=== PATIENT | male | born 1990 | race Caucasian/White ===

== ENCOUNTER 2018-05-26 22:44 | Emergency (ER) | payer SELFPAY ==
--- NOTE | 2018-05-26 22:54 | ED ---
Psych HPI - General Source: police Mode of arrival: ambulatory <Whit Lima - Last Filed: 05/27/18 05:49> <Onesimo Rico - Last Filed: 05/27/18 10:08> - General Chief Complaint: Psychiatric Symptoms Stated Complaint: Mental Health, Petition Time Seen by Provider: 05/26/18 22:54 - History of Present Illness Initial Comments: Wali is a 27-year-old male is brought to the ED today by police for evaluation of suicidal thoughts. Police were contacted by the patient's mother after he had made some suicidal statements to her. Police found the patient and his home where he lives alone, patient was intoxicated. Patient admits to drinking alcohol this evening, he states that he lives alone, he admits that he has both knives and guns available to him in his house, he denies any psychiatric history. He admits to being depressed, he admits to making suicidal statements to his family members earlier in the night, he denies any suicidal thoughts or intention to me. Patient is agitated stating that he is being held against his will. (Whit Lima) - Related Data Home Medications Medication Instructions Recorded Confirmed [id number] 2 tab PO Q6HR PRN 05/26/18 05/26/18 [Excedrin] Allergies Allergy/AdvReac Type Severity Reaction Status Date / Time cat dander Allergy Anaphylaxis Verified 05/26/18 23:29 Review of Systems ROS Other: All systems not noted in ROS Statement are negative. <Whit Lima - Last Filed: 05/27/18 05:49> ROS Other: All systems not noted in ROS Statement are negative. <Onesimo Rico - Last Filed: 05/27/18 10:08> ROS Statement: Those systems with pertinent positive or pertinent negative responses have been documented in the HPI. Past Medical History Past Medical History: No Reported History History of Any Multi-Drug Resistant Organisms: None Reported Past Surgical History: No Surgical Hx Reported Past Psychological History: No Psychological Hx Reported Smoking Status: Never smoker Past Alcohol Use History: Occasional Past Drug Use History: None Reported <Whit Lima - Last Filed: 05/27/18 05:49> General Exam Limitations: no limitations <Whit Lima - Last Filed: 05/27/18 05:49> General appearance: alert, in no apparent distress Head exam: Present: atraumatic, normocephalic, normal inspection Eye exam: Present: normal appearance, PERRL, EOMI. Absent: scleral icterus, conjunctival injection, periorbital swelling ENT exam: Present: normal exam, mucous membranes moist Neck exam: Present: normal inspection. Absent: tenderness, meningismus, lymphadenopathy Respiratory exam: Present: normal lung sounds bilaterally. Absent: respiratory distress, wheezes, rales, rhonchi, stridor Cardiovascular Exam: Present: regular rate, normal rhythm, normal heart sounds. Absent: systolic murmur, diastolic murmur, rubs, gallop, clicks GI/Abdominal exam: Present: soft, normal bowel sounds. Absent: distended, tenderness, guarding, rebound, rigid Extremities exam: Present: normal inspection, full ROM, normal capillary refill. Absent: tenderness, pedal edema, joint swelling, calf tenderness Back exam: Present: normal inspection Neurological exam: Present: alert, oriented X3, CN II-XII intact Psychiatric exam: Present: normal affect, normal mood Skin exam: Present: warm, dry, intact, normal color. Absent: rash <Onesimo Rico - Last Filed: 05/27/18 10:08> - General Exam Comments Initial Comments: Physical Exam GENERAL: Patient is agitated, appears intoxicated HENT: Normocephalic, Atraumatic. EYES: PERRL, EOMI PULMONARY: Unlabored respirations. No audible rales rhonchi or wheezing was noted. CARDIOVASCULAR: Tachycardia, regular, no murmurs rubs or gallops ABDOMEN: Soft and nontender with normal bowel sounds. SKIN: Skin is clear with no lesions or rashes and otherwise unremarkable. : Deferred NEUROLOGIC: Patient is alert and oriented x3. Moving all extremities spontaneously MUSCULOSKELETAL: Normal extremities with adequate strength and full range of motion. No lower extremity swelling or edema. No calf tenderness. PSYCHIATRIC: Agitated, admits to making suicidal statements to his family, denies suicidal thoughts to me Limitations: no limitations (Whit Lima) Course <Whit Lima - Last Filed: 05/27/18 05:49> <Onesimo Rico - Last Filed: 05/27/18 10:08> Vital Signs 05/26/18 05/27/18 05/27/18 22:48 00:05 04:15 Temperature 98.4 F Pulse Rate 120 H Respiratory 20 19 19 Rate Blood Pressure O2 Sat by Pulse 99 Oximetry 05/27/18 06:47 Temperature 98.2 F Pulse Rate 98 Respiratory 18 Rate Blood Pressure 132/75 O2 Sat by Pulse 97 Oximetry - Reevaluation(s) Reevaluation #1: 05/27/18 10:07 Medically clear for psychiatric evaluation (Onesimo Rico) Medical Decision Making <Whit Lima - Last Filed: 05/27/18 05:49> <Onesimo Rico - Last Filed: 05/27/18 10:08> - Medical Decision Making Patient was seen and evaluated, patient is intoxicated and agitated I advised the patient that he his petitioned for psychiatric evaluation, he will be evaluated when sober Patient was given Ativan for agitation, subsequently sleeping comfortably in bed Patient care signed out to Dr. Rico At 7 AM. Patient cleared for medical evaluation at [address] Rico will follow up on EPS recommendations. (Whit Lima) 27 male who was seen and evaluated by psychiatry, patient was deemed medically clear for discharge home not significant homicidal or suicidal currently. ( Onesimo Rico) - Lab Data Lab Results 05/27/18 Range/Units 09:00 Urine Color Yellow Urine Appearance Cloudy (Clear) Urine pH 5.5 (5.0-8.0) Ur Specific [place] 1.020 (1.001-1.035) Urine Protein Trace H (Negative) Urine Glucose (UA) Negative (Negative) Urine Ketones 1+ H (Negative) Urine Blood Negative (Negative) Urine Nitrite Negative (Negative) Urine Bilirubin Negative (Negative) Urine Urobilinogen <2.0 (<2.0) mg/dL Ur Leukocyte Esterase Negative (Negative) Urine RBC 3 (0-5) /hpf Urine WBC 4 (0-5) /hpf Urine Mucus Many H (None) /hpf Urine Opiates Screen Not Detected (NotDetected) Ur Oxycodone Screen Not Detected (NotDetected) Urine Methadone Screen Not Detected (NotDetected) Ur Propoxyphene Screen Not Detected (NotDetected) Ur Barbiturates Screen Not Detected (NotDetected) U Tricyclic Antidepress Not Detected (NotDetected) Ur Phencyclidine Scrn Not Detected (NotDetected) Ur Amphetamines Screen Not Detected (NotDetected) U Methamphetamines Scrn Not Detected (NotDetected) U Benzodiazepines Scrn Detected H (NotDetected) Urine Cocaine Screen Not Detected (NotDetected) U Marijuana (THC) Screen Not Detected (NotDetected) Disposition Is patient prescribed a controlled substance at d/c from ED?: No <Whit Lima - Last Filed: 05/27/18 05:49> Is patient prescribed a controlled substance at d/c from ED?: No <Onesimo Rico - Last Filed: 05/27/18 10:08> Clinical Impression: Alcohol intoxication Disposition: HOME SELF-CARE Condition: Fair Instructions: Abuse of Alcohol (DC) Referrals: Gini Ayala MD [REFERRING] - 1-2 days
[2018-05-26] MEDS ORDERED: LORazepam 2 MG/ML INJ IM STA (23:50)
[2018-05-27] MEDS ORDERED: NICOTINE 14MG/24HR PATCH TRANSDERM STA (00:07)
[2018-05-27 06:49] VITALS: RESP 18
[2018-05-27 09:37] LABS: Appearance,Urine Cloudy (Clear); Bilirubin,Urine Negative (Negative); Blood,Urine Negative (Negative); Color,Urine Yellow; Glucose,Urine (UA) Negative (Negative); Ketones,Urine 1+ (Negative); Leukocyte Esterase,Urine Negative (Negative); Mucus,Urine Many /hpf; Nitrite,Urine Negative (Negative); PH, Urine 5.5 (5.0-8.0); Protein,Urine Trace (Negative); RBC,Urine 3 /hpf (0-5); Urobilinogen,Urine <2.0 mg/dL (<2.0); WBC,Urine 4 /hpf (0-5)
[2018-05-27 09:45] LABS: Amphetamine Screen,Urine Not Detected (NotDetected); Barbiturate Screen,Urine Not Detected (NotDetected); Benzodiazepines Screen,Urine Detected (NotDetected); Cocaine Screen,Urine Not Detected (NotDetected); Methadone Screen, Urine Not Detected (NotDetected); Opiate Screen,Urine Not Detected (NotDetected); Oxycodone Screen, Urine Not Detected (NotDetected); Phencyclidine Screen,Urine Not Detected (NotDetected); Tricyclic Antidepressant,Urine Not Detected (NotDetected); Urn Cannabinoid Scrn Not Detected (NotDetected)
[2018-05-27 10:28] VITALS: BP 132/98; PULSE 97; TEMP 97.9
== END 2018-05-27 10:28 | disposition home or self-care (01) ==
LOC: EC 22:44
DX: F10.129 Alcohol abuse with intoxication, unspecified (principal); R45.1 Restlessness and agitation; Z91.09 Other allergy status, other than to drugs and biological substances
CPT/HCPCS: 81001; 80306; 99284; 96372; S4990; J2060